=== PATIENT | female | born 1955 | race Caucasian/White ===

== ENCOUNTER → 2016-08-28 | Outpatient (CLI) | payer OTHER ==
[~2016-08-28] MED LIST: ALBU6.7H INH; BENZ200C36 PO; CLON0.5T4 PO; FLUO-138 PO; FURO40TA5 PO; HYDR-4072 PO; INSU100V; LOSA50TA52 PO; MELO-267 PO; NAPR220T61 PO
== END ==
LOC: WC.BC 11:28
DX: Z12.31 Encounter for screening mammogram for malignant neoplasm of breast (principal); N64.59 Other signs and symptoms in breast
CPT/HCPCS: 77063; G0202